=== PATIENT | female | born 1990 | race Caucasian/White ===

== ENCOUNTER 2021-01-25 14:35 | Emergency (ER) | payer SELFPAY ==
[~2021-01-25] VITALS: Ht 167.6 cm; Wt 64.0 kg
[2021-01-25] MEDS ORDERED: LORAZEPAM 1MG TABLET PO ONE (16:30)
[2021-01-25 17:29] VITALS: BP 129/83
== END 2021-01-25 17:31 | disposition home or self-care (01) ==
LOC: ER 14:35
DX: F15.10 Other stimulant abuse, uncomplicated (principal); Z98.890 Other specified postprocedural states
CPT/HCPCS: 93005; 99283